=== PATIENT | female | born 1995 | race African-American/Black ===

== ENCOUNTER 2024-08-25 22:00 | Emergency (ER) | payer OTHER ==
[~2024-08-25] VITALS: Ht 170.2 cm; Wt 82.0 kg
[2024-08-25 22:05] VITALS: O2SAT 100
[2024-08-26 00:15] LABS: EOSINOPHILS % 2.4 % (0.0-5.0); HEMATOCRIT. 24.8 % (36.0-48.0); HEMOGLOBIN. 8.1 g/dL (12.0-16.0); MEAN CORPUSCULAR HEMOGLOBIN 28.5 pg (28.0-32.0); MEAN CORPUSCULAR HGB CONC 32.6 g/dL (31.0-37.0); MEAN CORPUSCULAR VOLUME 87.5 fL (81.0-99.0); MEAN PLATELET VOLUME 7.6 fl (7.4-10.4); MONOCYTES % 10.2 % (2.0-8.0); NEUTROPHILS % 63.4 % (40.0-76.0); PLATELET 270 x1000/uL (130-400); RED BLOOD CELL COUNT 2.83 mill/uL (4.2-5.4); RED CELL DISTRIBUTION WIDTH 14.1 % (11.6-14.6); WHITE BLOOD COUNT 3.6 x1000/uL (4.5-11.0)
[2024-08-26 00:29] LABS: DIFFERENTIAL COMMENT 1
[2024-08-26 01:53] VITALS: BP 133/66; PULSE 90; RESP 18; TEMP 36.89184; O2SAT 100
== END 2024-08-26 01:55 | disposition home or self-care (01) ==
LOC: ER 22:00
DX: O03.4 Incomplete spontaneous abortion without complication (principal); O26.892 Other specified pregnancy related conditions, second trimester; Z3A.15 15 weeks gestation of pregnancy
CPT/HCPCS: 36415; 76830; 76856; 84702; 85025; 86850; 86900; 99284